=== PATIENT | female | born 1980 | race Caucasian/White ===

== ENCOUNTER 2020-07-03 09:45 | Day surgery (SDC) | payer OTHER, SELFPAY ==
[~2020-07-03] VITALS: Ht 170.2 cm; Wt 108.9 kg
[2020-07-03] MEDS ORDERED: LIDOCAINE 2% 100 MG/5 ML UJET TP ONE (12:25)
[2020-07-03] MEDS ORDERED: fentaNYL citrate 0.05 MG/ML VIAL ONE (12:25)
[2020-07-03] MEDS ORDERED: fentaNYL citrate 0.05 MG/ML VIAL IVP ONE (15:25)
== END 2020-07-03 13:20 | disposition home or self-care (01) ==
LOC: MDS 09:45 → MMU 10:29 → MDS 13:20
PROVIDERS: ATTEND Internal Medicine Gastroenterology
DX: K62.5 Hemorrhage of anus and rectum (principal); F17.210 Nicotine dependence, cigarettes, uncomplicated; Z20.828 Contact with and (suspected) exposure to other viral communicable diseases; Z80.0 Family history of malignant neoplasm of digestive organs
CPT/HCPCS: 45378; 81025; J3010; U0003